=== PATIENT | male | born 1985 | race Caucasian/White ===

== ENCOUNTER 2019-09-19 14:17 | Emergency (ER) | payer SELFPAY ==
--- OUTSIDE RECORDS SUMMARY | 2019-09-19 14:19 | XMS REPORT ---
:1985 Author Organization [facility] Address [address] [place] [address] [place] [id number] Care Team Providers Name Role Phone JOHNROBEREMELIA GARCIA Unavailable Unavailable Problems This patient has no known problems. Allergies, Adverse Reactions, Alerts This patient has no known allergies or adverse reactions. Medications This patient has no known medications. Results Test Description Test Time Test Comments Text Results Atomic Results Result Comments HEMOGLOBIN A1C 2017-03-01 20:49:00 Test Item Value Reference Range Comments HEMOGLOBIN A1C (BEAKER) (test dccy=127) 5.3 % 4.3-6.1 CREATINE KINASE (CK), TOTAL AND [id number] 16:24:00 Test Item Value Reference Range Comments CREATINE KINASE TOTAL (BEAKER) (test jskw=696) 105 U/L 29-200 CREATINE KINASE-MB (BEAKER) (test sqoh=042) 0.7 ng/mL 0.0-6.6 CREATINE KINASE-MB INDEX (BEAKER) (test prtl=205) 0.7 % Effective 07/13/2014: CK-MB Reference Range ChangeNew: 0.0-6.6 Previous: 0.0- 4.9CK-MB Reference Range:<6.7 Normal6.7-10.0 Borderline>10.0 AbnormalTROPONIN [id number] 16:24:00 Test Item Value Reference Range Comments TROPONIN I (BEAKER) (test lsdy=612) < ng/mL 0.00-0.03 Effective 07/13/2014: Reference Range ChangeNew: 0.00-0.03 Previous 0.00- 0.15Troponin I (TnI) levels must be interpreted in the context of the presenting symptoms and the clinical findings. Elevated TnI levels indicate myocardial damage, but are not specific for ischemic heart disease. Elevated TnI levels are seen in patients with other cardiac conditions (including myocarditis and congestive heartfailure), and slight TnI elevations occur in patients with other conditions, including sepsis, renalfailure, acidosis, acute neurological disease, and persistent tachyarrhythmia.[id number] 11:46:00 Test Item Value Reference Range Comments RPR SCREEN (BEAKER) (test tnxx=985) Nonreactive Nonreactive CREATINE KINASE (CK), TOTAL AND [id number] 08:49:00 Test Item Value Reference Range Comments CREATINE KINASE TOTAL (BEAKER) (test msir=370) 104 U/L 29-200 CREATINE KINASE-MB (BEAKER) (test hzaf=257) 0.8 ng/mL 0.0-6.6 CREATINE KINASE-MB INDEX (BEAKER) (test dyjz=468) 0.8 % Effective 07/13/2014: CK-MB Reference Range ChangeNew: 0.0-6.6 Previous: 0.0- 4.9CK-MB Reference Range:<6.7 Normal6.7-10.0 Borderline>10.0 AbnormalTROPONIN [id number] 08:49:00 Test Item Value Reference Range Comments TROPONIN I (BEAKER) (test qmef=556) < ng/mL 0.00-0.03 Effective 07/13/2014: Reference Range ChangeNew: 0.00-0.03 Previous 0.00- 0.15Troponin I (TnI) levels must be interpreted in the context of the presenting symptoms and the clinical findings. Elevated TnI levels indicate myocardial damage, but are not specific for ischemic heart disease. Elevated TnI levels are seen in patients with other cardiac conditions (including myocarditis and congestive heartfailure), and slight TnI elevations occur in patients with other conditions, including sepsis, renalfailure, acidosis, acute neurological disease, and persistent tachyarrhythmia.TSH/FREE T4 IF [id number] 03:14:00 Test Item Value Reference Range Comments THYROID STIMULATING HORMONE (BEAKER) (test 1.44 uIU/mL 0.35-4.94 sofp=525) VITAMIN B12 AND [id number] 03:14:00 Test Item Value Reference Range Comments VITAMIN B12 (BEAKER) (test gjcp=616) 432 pg/mL 213-816 FOLATE (BEAKER) (test rxkd=412) 17.1 ng/mL >=7.0 Effective 07/13/2014: Folate Reference Range ChangeNew: >=7.0 Previous: & gt;=5.4CREATINE KINASE (CK), TOTAL AND [id number] 02:35:00 Test Item Value Reference Range Comments CREATINE KINASE TOTAL (BEAKER) (test uvxq=721) 172 U/L 29-200 CREATINE KINASE-MB (BEAKER) (test usim=008) 1.0 ng/mL 0.0-6.6 CREATINE KINASE-MB INDEX (BEAKER) (test ufvj=419) 0.6 % Effective 07/13/2014: CK-MB Reference Range ChangeNew: 0.0-6.6 Previous: 0.0- 4.9CK-MB Reference Range:<6.7 Normal6.7-10.0 Borderline>10.0 AbnormalTROPONIN [id number] 02:35:00 Test Item Value Reference Range Comments TROPONIN I (BEAKER) (test nqzl=953) < ng/mL 0.00-0.03 Effective 07/13/2014: Reference Range ChangeNew: 0.00-0.03 Previous 0.00- 0.15Troponin I (TnI) levels must be interpreted in the context of the presenting symptoms and the clinical findings. Elevated TnI levels indicate myocardial damage, but are not specific for ischemic heart disease. Elevated TnI levels are seen in patients with other cardiac conditions (including myocarditis and congestive heartfailure), and slight TnI elevations occur in patients with other conditions, including sepsis, renalfailure, acidosis, acute neurological disease, and persistent tachyarrhythmia.[id number] 02:29: 00 Test Item Value Reference Range Comments PHOSPHORUS (BEAKER) (test mbtq=316) 4.2 mg/dL 2.3-4.7 [id number] 02:29:00 Test Item Value Reference Range Comments MAGNESIUM (BEAKER) (test yxhb=660) 2.1 mg/dL 1.6-2.6 LIPID [id number] 02:29:00 Test Item Value Reference Range Comments TRIGLYCERIDES (BEAKER) (test zgzk=573) 299 mg/dL CHOLESTEROL (BEAKER) (test ierq=968) 171 mg/dL HDL CHOLESTEROL (BEAKER) (test rzyh=815) 39 mg/dL LDL CHOLESTEROL CALCULATED (BEAKER) (test 72 mg/dL voyw=174) Triglyceride Reference Range: Low Risk <150 Borderline 150- 199 High Risk 200-499 Very High Risk >=500Cholesterol Reference Range: Low Risk <200 Borderline 200-239 High Risk > 240HDL Cholesterol Reference Range: Low Risk >=60 High Risk <40LDL Cholesterol Reference Range: Optimal <100 Near Optimal 100-129 Borderline 130-159 High 160-189 Very High >=190CBC W/PLT COUNT & AUTO [id number] 02:20:00 Test Item Value Reference Range Comments WHITE BLOOD CELL COUNT (BEAKER) (test lnsk=127) 9.6 K/ L 4.0-10.0 RED BLOOD CELL COUNT (BEAKER) (test tacw=710) 4.50 M/ L 4.20-5.80 HEMOGLOBIN (BEAKER) (test gnug=662) 15.7 GM/DL 13.0-16.8 HEMATOCRIT (BEAKER) (test ockn=690) 44.1 % 40.0-50.0 MEAN CORPUSCULAR VOLUME (BEAKER) (test tjuz=630) 98.0 fL 82.0-98.0 MEAN CORPUSCULAR HEMOGLOBIN (BEAKER) (test 34.9 pg 27.0-33.0 gmjw=448) MEAN CORPUSCULAR HEMOGLOBIN CONC (BEAKER) (test 35.6 GM/DL 32.0-36.0 kozt=527) RED CELL DISTRIBUTION WIDTH (BEAKER) (test 11.1 % 10.3-14.2 dljf=516) PLATELET COUNT (BEAKER) (test lgii=812) 219 K/CU MM 150-430 MEAN PLATELET VOLUME (BEAKER) (test tftn=218) 7.4 fL 6.5-10.5 NUCLEATED RED BLOOD CELLS (BEAKER) (test 0 /100 WBC 0-0 arlm=322) NEUTROPHILS RELATIVE PERCENT (BEAKER) (test 48 % dfja=933) LYMPHOCYTES RELATIVE PERCENT (BEAKER) (test 43 % mioo=386) MONOCYTES RELATIVE PERCENT (BEAKER) (test 7 % hwuq=442) EOSINOPHILS RELATIVE PERCENT (BEAKER) (test 2 % sifh=385) BASOPHILS RELATIVE PERCENT (BEAKER) (test 1 % qtpp=150) NEUTROPHILS ABSOLUTE COUNT (BEAKER) (test 4.59 K/ L 1.80-8.00 nyfx=647) LYMPHOCYTES ABSOLUTE COUNT (BEAKER) (test 4.11 K/ L 1.48-4.50 oskn=667) MONOCYTES ABSOLUTE COUNT (BEAKER) (test 0.62 K/ L 0.00-1.30 ause=129) EOSINOPHILS ABSOLUTE COUNT (BEAKER) (test 0.16 K/ L 0.00-0.50 akiw=487) BASOPHILS ABSOLUTE COUNT (BEAKER) (test 0.07 K/ L 0.00-0.20 fnzi=823) 0.00
[2019-09-19 15:47] LABS: Absolute Lymphocytes (CBC) 2.2 K/uL (0.7-4.9); Basophils % 1.1 % (0-1.3); Hematocrit 44.8 % (39.6-49.0); Lymphocytes % 18.5 % (15.3-44.8); MPV 8.6 fL (7.6-11.3); RBC Red Blood Cell Count 4.85 M/uL (4.33-5.43)
[2019-09-19 15:49] LABS: Protime INR 0.99
[2019-09-19] MEDS ORDERED: ACETAMINOPHEN 325 MG TABLET ONE (15:50)
--- NOTE | 2019-09-19 15:53 | RAD REPORT ---
EXAM DESCRIPTION: RAD - Chest Pa And Lat (2 Views) - 09/19/2019 3:43 pm CLINICAL HISTORY: cough Chest pain. COMPARISON: Chest Single View dated 02/27/2017; CHEST PA AND LAT 2 VIEW dated 09/01/2014; CHEST PA AND L AT 2 VIEW dated 06/29/2011; CHEST SINGLE VIEW dated 09/10/2009 FINDINGS: The lungs are clear. The heart is normal in size. No displaced fractures. IMPRESSION: No acute or concerning finding suspected.
[2019-09-19 16:00] LABS: ALT/SGPT 37 U/L (12-78); AST/SGOT 24 U/L (15-37); Albumin 4.3 g/dL (3.4-5.0); Alkaline Phosphatase 122 U/L (45-117); BUN Blood Urea Nitrogen 10 mg/dL (7-18); Bicarbonate 29 mmol/L (21-32); Bilirubin Direct 0.1 mg/dL (0-0.2); Bilirubin Total 0.5 mg/dL (0.2-1.0); Glucose Level 105 mg/dL (74-106); Potassium 4.3 mmol/L (3.5-5.1); Protein, Total 8.3 g/dL (6.4-8.2); Sodium Level 138 mmol/L (136-145); Troponin (Emerg Dept Use Only) < 0.02 ng/mL (0.0-0.045)
--- NOTE | 2019-09-19 16:55 | ER ---
Nurse's Notes [facility] [place] Name: Addy Chan Age: 34 yrs Sex: Male : 1985 Arrival Date: 09/19/2019 Time: 14:24 Bed 19 Private MD: Diagnosis: Streptococcal pharyngitis;Chest pain, unspecified;Cough Presentation: 09/19 14:26 Presenting complaint: Productive cough with brownish sputum, SOB, chest tightness, hb nausea, malaise, and diarrhea x 3 days. Transition of care: patient was not received from another setting of care. Onset of symptoms was September 17, 2019. Risk Assessment: Do you want to hurt yourself or someone else? Patient reports no desire to harm self or others. Care prior to arrival: None. 14:26 Method Of Arrival: Ambulatory hb 14:26 Acuity: BALBIR 3 hb 14:30 Initial Sepsis Screen: Does the patient meet any 2 criteria? No. Patient's initial rb1 sepsis screen is negative. Does the patient have a suspected source of infection? No. Patient's initial sepsis screen is negative. Historical: - Allergies: 14:27 Iodine; hb - PMHx: 14:27 Diabetes - NIDDM; TIA x2; hb - PSHx: 14:27 right club foot corrected; hb - Immunization history:: Adult Immunizations up to date. - Coronavirus screen:: The patient has NOT traveled to [place], [place], or [place] in the past 14 days. The patient has NOT had contact with known/suspected case of Coronavirus? Proceed with normal triage procedures. - Social history:: Smoking status: Patient reports the use of cigarette tobacco products, smokes one-half pack cigarettes per day. - Ebola Screening: : No symptoms or risks identified at this time. Screenin:30 Abuse screen: Denies threats or abuse. Nutritional screening: No deficits noted. rb1 Tuberculosis screening: No symptoms or risk factors identified. Fall Risk None identified. Assessment: 14:30 General: Appears in no apparent distress. comfortable, Behavior is calm, cooperative, rb1 Reports fever for. Pain: Complains of pain in chest Pain does not radiate. Pain currently is 6 out of 10 on a pain scale. Quality of pain is described as pressure, Pain began 2-3 days ago. pain described at pressure. Neuro: Level of Consciousness is awake, alert, obeys commands, Oriented to person, place, time, situation. Cardiovascular: Capillary refill < 3 seconds is brisk in bilateral fingers. Respiratory: Reports cough that is productive, yellow sputum pain with cough Airway is patent Respiratory effort is even, unlabored, Respiratory pattern is regular, symmetrical. GI: Reports nausea. : No signs and/or symptoms were reported regarding the genitourinary system. Derm: Skin is pink, warm \T\ dry. 15:30 Reassessment: Patient appears in no apparent distress at this time. No changes from rb1 previously documented assessment. 16:30 Reassessment: Patient appears in no apparent distress at this time. Patient and/or rb1 family updated on plan of care and expected duration. Pain level reassessed. Patient is alert, oriented x 3, equal unlabored respirations, skin warm/dry/pink. 17:26 Reassessment: Patient appears in no apparent distress at this time. No changes from rb1 previously documented assessment. Family at the bedside. Vital Signs: 14:27 BP 161 / 102; Pulse 90; Resp 16; Temp 99; Pulse Ox 96% on R/A; Weight 72.57 kg; Height hb 5 ft. 4 in. (162.56 cm); Pain 5/10; 15:25 BP 130 / 81; Pulse 87; Resp 16; Pulse Ox 99% on R/A; rb1 16:25 BP 139 / 88; Pulse 76; Resp 18; Pulse Ox 98% on R/A; rb1 17:23 BP 125 / 75; Pulse 75; Resp 17; Pulse Ox 97% on R/A; Pain 4/10; rb1 14:27 Body Mass Index 27.46 (72.57 kg, 162.56 cm) hb ED Course: 14:24 Patient arrived in ED. es 14:27 Triage completed. hb 14:27 Arm band placed on. hb 14:29 Nicanor Matias NP is PHCP. pm1 14:29 Vikram Fiore MD is Attending Physician. pm1 14:30 Patient has correct armband on for positive identification. Bed in low position. Call rb1 light in reach. Side rails up X 1. campus monitor on. Pulse ox on. NIBP on. 14:30 Patient maintains SpO2 saturation greater than 95% on room air. rb1 14:51 Jossy Alcaraz, ANNELISE is Primary Nurse. rb1 15:28 Inserted saline lock: 20 gauge in right antecubital area, using aseptic technique. rb1 ,using aseptic technique. IV inserted by ANNELISE Abreu Blood collected. 15:42 Chest Pa And Lat (2 Views) In Process Unspecified. EDMS 17:26 No provider procedures requiring assistance completed. IV discontinued, intact, rb1 bleeding controlled, No redness/swelling at site. Pressure dressing applied. Administered Medications: 15:49 Drug: Tylenol 650 mg Route: PO; rb1 16:33 Follow up: Response: No adverse reaction; Pain is decreased rb1 Outcome: 16:54 Discharge ordered by MD. pm1 17:26 Discharged to home ambulatory, with significant other. rb1 17:26 Condition: stable 17:26 Discharge instructions given to patient, Instructed on discharge instructions, follow up and referral plans. medication usage, Demonstrated understanding of instructions, follow-up care, medications, Prescriptions given X 1. 17:26 Patient left the ED. rb1 Signatures: Dispatcher [employer] EDMS Opal Dominguez Rebecca, RN RN rb1 Nicanor Matias, FOREIGN EXCHANGE TRADER FOREIGN EXCHANGE TRADER pm1 Alta Kelly RN RN Corrections: (The following items were deleted from the chart) 17:29 17:28 Initial Sepsis Screen: Does the patient meet any 2 criteria? rb1 rb1 17:31 17:30 Patient left the ED. rb1 rb1
--- NOTE | 2019-09-19 16:56 | EDPHYS ---
Physician Documentation [facility] Name: Addy Chan Age: 34 yrs Sex: Male : 1985 Arrival Date: 09/19/2019 Time: 14:24 Bed 19 Private MD: ED Physician Vikram Fiore HPI: 09/19 15:16 This 34 yrs old Male presents to ER via Ambulatory with complaints of Chest pm1 Tightness. 15:16 The patient or guardian reports chest pain that is located primarily in the mid-sternal pm1 area. The pain does not radiate. Associated signs and symptoms: Pertinent positives: dry cough that became productive, Pertinent negatives: dizziness. The chest pain is described as tightness and increased with coughing. Modifying factors: The symptoms are alleviated by nothing. the symptoms are aggravated by cough. Severity of pain: in the emergency department the pain is actually worse. The patient has not recently seen a physician. Historical: - Allergies: 14:27 Iodine; hb - PMHx: 14:27 Diabetes - NIDDM; TIA x2; hb - PSHx: 14:27 right club foot corrected; hb - Immunization history:: Adult Immunizations up to date. - Coronavirus screen:: The patient has NOT traveled to [place], [place], or [place] in the past 14 days. The patient has NOT had contact with known/suspected case of Coronavirus? Proceed with normal triage procedures. - Social history:: Smoking status: Patient reports the use of cigarette tobacco products, smokes one-half pack cigarettes per day. - Ebola Screening: : No symptoms or risks identified at this time. ROS: 15:16 Constitutional: Negative for fever, chills, and weight loss, Eyes: Negative for injury, pm1 pain, redness, and discharge, ENT: Negative for injury, pain, and discharge, Neck: Negative for injury, pain, and swelling. 15:16 Abdomen/GI: Negative for abdominal pain, nausea, vomiting, diarrhea, and constipation, Back: Negative for injury and pain, MS/Extremity: Negative for injury and deformity, Skin: Negative for injury, rash, and discoloration, Neuro: Negative for headache, weakness, numbness, tingling, and seizure. 15:16 Cardiovascular: Positive for chest pain, Negative for edema, orthopnea, palpitations. 15:16 Respiratory: Positive for cough, brown sputum, Negative for shortness of breath, wheezing. Exam: 16:27 Constitutional: This is a well developed, well nourished patient who is awake, alert, pm1 and in no acute distress. Head/Face: Normocephalic, atraumatic. Neck: Trachea midline, no thyromegaly or masses palpated, and no cervical lymphadenopathy. Supple, full range of motion without nuchal rigidity, or vertebral point tenderness. No Meningismus. 16:27 Cardiovascular: Regular rate and rhythm with a normal S1 and S2. No gallops, murmurs, or rubs. Normal PMI, no JVD. No pulse deficits. Respiratory: Lungs have equal breath sounds bilaterally, clear to auscultation and percussion. No rales, rhonchi or wheezes noted. No increased work of breathing, no retractions or nasal flaring. Abdomen/GI: Soft, non-tender, with normal bowel sounds. No distension or tympany. No guarding or rebound. No evidence of tenderness throughout. Back: No spinal tenderness. No costovertebral tenderness. Full range of motion. Skin: Warm, dry with normal turgor. Normal color with no rashes, no lesions, and no evidence of cellulitis. MS/ Extremity: Pulses equal, no cyanosis. Neurovascular intact. Full, normal range of motion. 16:27 Chest/axilla: Inspection: normal, Palpation: tenderness, of the mid-sternal area, that totally reproduces the patient's complaints. 16:27 Neuro: Orientation: is normal, Motor: is normal, moves all fours. Vital Signs: 14:27 BP 161 / 102; Pulse 90; Resp 16; Temp 99; Pulse Ox 96% on R/A; Weight 72.57 kg; Height hb 5 ft. 4 in. (162.56 cm); Pain 5/10; 15:25 BP 130 / 81; Pulse 87; Resp 16; Pulse Ox 99% on R/A; rb1 16:25 BP 139 / 88; Pulse 76; Resp 18; Pulse Ox 98% on R/A; rb1 17:23 BP 125 / 75; Pulse 75; Resp 17; Pulse Ox 97% on R/A; Pain 4/10; rb1 14:27 Body Mass Index 27.46 (72.57 kg, 162.56 cm) hb MDM: 14:49 Patient medically screened. pm1 16:41 Data reviewed: vital signs. Data interpreted: Pulse oximetry: on room air is 96 %. pm1 Interpretation: normal. 16:42 Counseling: I had a detailed discussion with the patient and/or guardian regarding: the pm1 historical points, exam findings, and any diagnostic results supporting the discharge/admit diagnosis, lab results, radiology results, the need for outpatient follow up, to return to the emergency department if symptoms worsen or persist or if there are any questions or concerns that arise at home. 16:42 ED course: Patient offered medications for symptoms. Patient refused, said he has some pm1 cough syrup at home already. 09/19 15:13 Order name: Influenza Screen (A ; Complete Time: 16:00 EDMS 09/19 15:13 Order name: Group A Streptococcus Rapid Sc; Complete Time: 16: ED09/19 15:35 Order name: Basic Metabolic Panel; Complete Time: 16:09/19 15:35 Order name: Liver (Hepatic) Function; Complete Time: 16:09/19 15:35 Order name: Troponin (Emerg Dept Use Only); Complete Time: 16: ED09/19 14:44 Order name: EKG; Complete Time: 16:01 pm09/19 14:44 Order name: Cardiac monitoring; Complete Time: 15:28 pm09/19 14:44 Order name: EKG - Nurse/Tech; Complete Time: 16:15 pm09/19 14:44 Order name: IV Saline Lock; Complete Time: 15:28 pm09/19 14:44 Order name: Labs collected and sent; Complete Time: 15:28 pm09/19 14:44 Order name: O2 Per Protocol; Complete Time: 15:28 pm09/19 14:44 Order name: O2 Sat Monitoring; Complete Time: 15:28 pm09/19 15:12 Order name: Chest Pa And Lat (2 Views); Complete Time: 16:00 EDMS 09/19 15:35 Order name: Magnesium; Complete Time: 16:09/19 15:35 Order name: CBC with Automated Diff; Complete Time: 16:00 EDMS 09/19 15:35 Order name: Protime (+INR); Complete Time: 16:09/19 15:36 Order name: NT PRO-BNP; Complete Time: 16:42 EDSC EC:27 Rate is 76 beats/min. Rhythm is regular, Sinus arrythmia with No ectopy. QRS [place] is kdr Normal. [place] interval is normal. QRS interval is normal. Clinical impression: NSR w/ Non-specific ST/T Changes and Sinus arrythmia. Administered Medications: 15:49 Drug: Tylenol 650 mg Route: PO; rb1 16:33 Follow up: Response: No adverse reaction; Pain is decreased rb1 Disposition: 09/19/19 16:54 Discharged to Home. Impression: Streptococcal pharyngitis, Chest pain, unspecified, Cough. - Condition is Stable. - Discharge Instructions: Nonspecific Chest Pain, Strep Throat, Cough, Adult. - Prescriptions for Amoxicillin 500 mg Oral Capsule - take 1 capsule by ORAL route every 8 hours for 10 days; 30 tablet. - Medication Reconciliation Form, Thank You Letter, Antibiotic Education, Prescription Opioid Use form. - Follow up: Emergency Department; When: As needed; Reason: Worsening of condition. Follow up: Private Physician; When: 2 - 3 days; Reason: Recheck today's complaints, Continuance of care, Re-evaluation by your physician. - Problem is new. - Symptoms have improved. Addendum: 09/20/2019 21:15 Co-signature as Attending Physician, Vikram Fiore MD I agree with the assessment and k dr plan of care. Signatures: Dispatcher [employer] [facility] Vikram Fiore MD MD [facility] Jossy Alcaraz, RN RN rb1 Nicanor Matias NP HEATER HELPER pm1 Alta Kelly RN RN Corrections: (The following items were deleted from the chart) 09/19 16:16 16:01 Chest Pa And Lat (2 Views)+[email or web address].[email or web address] ordered. [facility] 17:30 16:54 09/19/2019 16:54 Discharged to Home. Impression: Streptococcal pharyngitis; Chest rb1 pain, unspecified; Cough. Condition is Stable. Forms are Medication Reconciliation Form, Thank You Letter, Antibiotic Education, Prescription Opioid Use. Follow up: Emergency Department; When: As needed; Reason: Worsening of condition. Follow up: Private Physician; When: 2 - 3 days; Reason: Recheck today's complaints, Continuance of care, Re-evaluation by your physician. Problem is new. Symptoms have improved. pm1
[2019-09-19 17:37] VITALS: TEMP 99
[2019-09-19 17:41] VITALS: BP 125/75; O2SAT 97
--- NOTE | 2019-09-19 23:15 | EKG ---
Test Date: 2019-09-19 Test Time: 15:52:25 Graphic Specialist: JAZMÍN MEASUREMENT RESULTS: Intervals: Rate: 76 UT: 132 QRSD: 84 QT: 388 QTc: 436 [place]: P: 47 UT: 132 QRS: 33 T: 48 INTERPRETIVE STATEMENTS: Normal sinus rhythm with sinus arrhythmia Normal ECG Compared to ECG 02/27/2017 22:35:14 No significant changes Electronically Signed On 09-19-19 23:14:42 GLOBAL PROGRAM MANAGER by Pedro Wagoner
== END 2019-09-19 17:30 | disposition home or self-care (01) ==
LOC: ER 14:17
DX: J02.0 Streptococcal pharyngitis (principal); R05 Cough; R07.9 Chest pain, unspecified; Z91.09 Other allergy status, other than to drugs and biological substances
CPT/HCPCS: 36415; 71046; 80048; 80076; 83735; 83880; 84484; 85025; 85610; 87081; 87804; 93005; 99285

== ENCOUNTER 2022-08-22 12:21 | Emergency (ER) | payer OTHER, SELFPAY ==
--- OUTSIDE RECORDS SUMMARY | 2022-08-22 13:00 | XMS REPORT | Continuity of Care Document ---
:1985 Author Organization [facility] t Address [address] [place] [address] Care Team Providers Name Role Phone EMELIA LOPEZ Attending Clinician Unavailable EMELIA LOPEZ Admitting Clinician Unavailable Problems Condition Condition Condition Status Onset Resolution Last Treating Co mments Source Name Details Category Date Date Treatment Clinician Date Received Received Disease [facility] activator activator (t-PA) (t-PA) less than less than 24 hours 24 hours prior to prior to arrival arrival Acute Acute Disease Active [facility] ischemic [facility] stroke stroke 00:00: Medical 00 [place] Alcohol Alcohol Disease Active [facility] abuse abuse [facility] 00 [place] Essential Essential Disease Active [facility] hypertensi hypertensi 02-28 Isabel kes on on 00:00: Medical 00 [place] Allergies, Adverse Reactions, Alerts Allergy Allergy Status Severity Reaction(s) Onset Inactive Treating Comm ents Source Name Type Date Date Clinician Iodine Propensi Active [facility] to 02-28 [facility] Iodide adverse 00:00: Medical Containi reaction 00 [place] ng s Products NO KNOWN Drug Active [facility] ALLERGIE Toño it[facility] of [facility] Social History Social Habit Start Date Stop Date Quantity Comments Source History of tobacco Cigarette [facility] use [facility] Cigarettes smoked 2017-02-28 2017-02-[address] [facility] [address] [facility] current (pack per 00:00:00 [facility]:00 [facility] day) - Reported Cigarette 2017-02-28 2017-02-28 CHEYANNE Shine pack-years 00:00:00 [facility]:00:00 [facility] Alcohol intake 2017-02-28 2017-02-28 Current drinker CHEYANNE Smith 00:00:00 00:00:00 of alcohol [facility] (finding) Sex [birth year] At [birth year] CHEYANNE Ayala 00:00:00 [facility]:00 [facility] Smoking Status Start Date Stop Date Source Current every day smoker 2017-02-28 00:00:00 [facility] Medications This patient has no known medications. Procedures This patient has no known procedures. Encounters Start End Encounter Admission Attending Care Care Encounter Source Date/Time Date/Time Type Type Clinicians Facility Department ID 2020-05-11 2020-05-11 Emergency X [facility] ERT [id number] [facility] 02:48:00 02:48:00 [facility] Results Test Description Test Time Test Comments Results Result Comments Source HEMOGLOBIN A1C 2017-03-01 20:49:00 Test Item Value Reference Range Interpretation Comme nts HEMOGLOBIN A1C (BEAKER) (test code = 368) 5.3 % 4.3-6.1 CREATINE KINASE (CK), TOTAL AND [id number] 16:24:00 Test Item Value Reference Range Interpretation Comments CREATINE KINASE TOTAL (BEAKER) 105 U/L 29-200 (test code = 380) CREATINE KINASE-MB (BEAKER) (test 0.7 ng/mL 0.0-6.6 code = 750) CREATINE KINASE-MB INDEX (BEAKER) 0.7 % (test code = 395) Effective 07/13/2014: CK-MB Reference Range ChangeNew: 0.0-6.6 Previous: 0.0-4.9CK-MB Reference Range:<6.7 Normal6.7-10.0 Borderline>10.0 Abnormal TROPONIN [id number] 16:24:00 Test Item Value Reference Range Interpretation Comments TROPONIN I (BEAKER) (test code = 397) < ng/mL 0.00-0.03 Effective 07/13/2014: Reference Range ChangeNew: 0.00-0.03 Previous 0.00- 0.15Troponin I (TnI) levelsmust be interpreted in the context of the presenting symptoms and the clinical findings. Elevated TnI levels indicate myocardial damage, but are not specific for ischemic heart disease. Elevated TnI levels are seen in patients with other cardiac conditions (including myocarditis and congestive heart failure), and slight TnI elevations occur in patients with other conditions, including sepsis, renal failure, acidosis, acute neurological disease, and persistent tachyarrhythmia.[id number] 11:46:00 Test Item Value Reference Range Interpretation Comments RPR SCREEN (Loud3r) (test code = Nonreactive Nonreactive 420) CREATINE KINASE (CK), TOTAL AND [id number] 08:49:00 Test Item Value Reference Range Interpretation Comments CREATINE KINASE TOTAL (GlucoSentientAKER) 104 U/L 29-200 (test code = 380) CREATINE KINASE-MB (GlucoSentientAKER) (test 0.8 ng/mL 0.0-6.6 code = 750) CREATINE KINASE-MB INDEX (GlucoSentientAKER) 0.8 % (test code = 395) Effective 07/13/2014: CK-MB Reference Range ChangeNew: 0.0-6.6 Previous: 0.0-4.9CK-MB Reference Range:<6.7 Normal6.7-10.0 Borderline>10.0 Abnormal TROPONIN [id number] 08:49:00 Test Item Value Reference Range Interpretation Comments TROPONIN I (GlucoSentientAKER) (test code = 397) < ng/mL 0.00-0.03 Effective 07/13/2014: Reference Range ChangeNew: 0.00-0.03 Previous 0.00- 0.15Troponin I (TnI) levelsmust be interpreted in the context of the presenting symptoms and the clinical findings. Elevated TnI levels indicate myocardial damage, but are not specific for ischemic heart disease. Elevated TnI levels are seen in patients with other cardiac conditions (including myocarditis and congestive heart failure), and slight TnI elevations occur in patients with other conditions, including sepsis, renal failure, acidosis, acute neurological disease, and persistent tachyarrhythmia.TSH/FREE T4 IF [id number] 03:14:00 Test Item Value Reference Range Interpretation Comments THYROID STIMULATING HORMONE 1.44 uIU/mL 0.35-4.94 (BEAKER) (test code = 772) VITAMIN B12 AND [id number] 03:14:00 Test Item Value Reference Range Interpretation Comments VITAMIN B12 (BEAKER) (test code = 432 pg/mL 213-816 774) FOLATE (BEAKER) (test code = 362) 17.1 ng/mL >=7.0 Effective 07/13/2014: Folate Reference Range ChangeNew: >=7.0 Previous: >=5.4CREATINE KINASE (CK), TOTAL AND [id number] 02:35:00 Test Item Value Reference Range Interpretation Comments CREATINE KINASE TOTAL (BEAKER) 172 U/L 29-200 (test code = 380) CREATINE KINASE-MB (BEAKER) (test 1.0 ng/mL 0.0-6.6 code = 750) CREATINE KINASE-MB INDEX (BEAKER) 0.6 % (test code = 395) Effective 07/13/2014: CK-MB Reference Range ChangeNew: 0.0-6.6 Previous: 0.0-4.9CK-MB Reference Range:<6.7 Normal6.7-10.0 Borderline>10.0 Abnormal TROPONIN [id number] 02:35:00 Test Item Value Reference Range Interpretation Comments TROPONIN I (BEAKER) (test code = 397) < ng/mL 0.00-0.03 Effective 07/13/2014: Reference Range ChangeNew: 0.00-0.03 Previous 0.00- 0.15Troponin I (TnI) levelsmust be interpreted in the context of the presenting symptoms and the clinical findings. Elevated TnI levels indicate myocardial damage, but are not specific for ischemic heart disease. Elevated TnI levels are seen in patients with other cardiac conditions (including myocarditis and congestive heart failure), and slight TnI elevations occur in patients with other conditions, including sepsis, renal failure, acidosis, acute neurological disease, and persistent tachyarrhythmia.[id number] 02:29:00 Test Item Value Reference Range Interpretation Comments PHOSPHORUS (BEAKER) (test code = 4.2 mg/dL 2.3-4.7 604) [id number] 02:29:00 Test Item Value Reference Range Interpretation Comments MAGNESIUM (BEAKER) (test code = 2.1 mg/dL 1.6-2.6 627) LIPID [id number] 02:29:00 Test Item Value Reference Range Interpretation Comments TRIGLYCERIDES (BEAKER) (test code = 299 mg/dL 540) CHOLESTEROL (BEAKER) (test code = 171 mg/dL 631) HDL CHOLESTEROL (BEAKER) (test code 39 mg/dL = 976) LDL CHOLESTEROL CALCULATED (BEAKER) 72 mg/dL (test code = 633) Triglyceride Reference Range: Low Risk <150 Borderline 150-199 High Risk 200- 499 Very High Risk >=500Cholesterol Reference Range: Low Risk <200 Borderline 200-239 High Risk >240HDL Cholesterol Reference Range: Low Risk >=60 High Risk <40LDL Cholesterol Reference Range: Optimal <100 Near Optimal 100-129 Borderline 130-159 High 160-189 Very High >=190CBC W/PLT COUNT & AUTO [id number] 02:20:00 Test Item Value Reference Range Interpretation Comments WHITE BLOOD CELL COUNT (BEAKER) 9.6 K/ L 4.0-10.0 (test code = 775) RED BLOOD CELL COUNT (BEAKER) 4.50 M/ L 4.20-5.80 (test code = 761) HEMOGLOBIN (BEAKER) (test code = 15.7 GM/DL 13.0-16.8 410) HEMATOCRIT (BEAKER) (test code = 44.1 % 40.0-50.0 411) MEAN CORPUSCULAR VOLUME (BEAKER) 98.0 fL 82.0-98.0 (test code = 753) MEAN CORPUSCULAR HEMOGLOBIN 34.9 pg 27.0-33.0 H (BEAKER) (test code = 751) MEAN CORPUSCULAR HEMOGLOBIN CONC 35.6 GM/DL 32.0-36.0 (BEAKER) (test code = 752) RED CELL DISTRIBUTION WIDTH 11.1 % 10.3-14.2 (BEAKER) (test code = 412) PLATELET COUNT (BEAKER) (test 219 K/CU MM 150-430 code = 756) MEAN PLATELET VOLUME (BEAKER) 7.4 fL 6.5-10.5 (test code = 754) NUCLEATED RED BLOOD CELLS 0 /100 WBC 0-0 (BEAKER) (test code = 413) NEUTROPHILS RELATIVE PERCENT 48 % (BEAKER) (test code = 429) LYMPHOCYTES RELATIVE PERCENT 43 % (BEAKER) (test code = 430) MONOCYTES RELATIVE PERCENT 7 % (BEAKER) (test code = 431) EOSINOPHILS RELATIVE PERCENT 2 % (BEAKER) (test code = 432) BASOPHILS RELATIVE PERCENT 1 % (BEAKER) (test code = 437) NEUTROPHILS ABSOLUTE COUNT 4.59 K/ L 1.80-8.00 (BEAKER) (test code = 670) LYMPHOCYTES ABSOLUTE COUNT 4.11 K/ L 1.48-4.50 (BEAKER) (test code = 414) MONOCYTES ABSOLUTE COUNT (BEAKER) 0.62 K/ L 0.00-1.30 (test code = 415) EOSINOPHILS ABSOLUTE COUNT 0.16 K/ L 0.00-0.50 (BEAKER) (test code = 416) BASOPHILS ABSOLUTE COUNT (BEAKER) 0.07 K/ L 0.00-0.20 (test code = 417) 0.00
[2022-08-22 13:41] LABS: SARS-COV-2 RT PCR NEGATIVE (NEGATIVE)
--- NOTE | 2022-08-22 13:44 | EDPHYS ---
Physician Documentation [facility] Name: Addy Chan Age: 37 yrs Sex: Male : 1985 Arrival Date: 08/22/2022 Time: 12:38 Bed IW1 Private MD: ED Physician René Stafford HPI: 08/22 13:06 This 37 yrs old Male presents to ER via Ambulatory with complaints of Fever, bodyaches. snw 13:06 The patient reports fever, that was measured at 100 degrees Fahrenheit. Onset: The snw symptoms/episode began/occurred suddenly, yesterday. Modifying factors: there are no obvious modifying factors. Severity of symptoms: At their worst the symptoms were moderate. The patient has not experienced similar symptoms in the past. The patient has not recently seen a physician. Historical: - Allergies: 12:53 No Known Allergies; ss - Home Meds: 12:53 None [Active]; ss - PMHx: 12:53 TIA x2; ss - PSHx: 12:53 R club foot correction; ss - Immunization history:: Client reports having NOT received the Covid vaccine. - Social history:: Smoking status: Reported history of juuling and/or vaping. ROS: 13:07 Eyes: Negative for injury, pain, redness, and discharge, ENT: Negative for injury, snw pain, and discharge, Neck: Negative for injury, pain, and swelling, Cardiovascular: Negative for chest pain, palpitations, and edema, Respiratory: Negative for shortness of breath, cough, wheezing, and pleuritic chest pain. 13:07 Back: Negative for injury and pain, : Negative for injury, bleeding, discharge, and swelling, MS/Extremity: Negative for injury and deformity, Skin: Negative for injury, rash, and discoloration, Neuro: Negative for headache, weakness, numbness, tingling, and seizure, Psych: Negative for depression, anxiety, suicide ideation, homicidal ideation, and hallucinations. 13:07 Constitutional: Positive for body aches, fatigue, fever, malaise, poor PO intake. 13:07 Abdomen/GI: Positive for nausea. Exam: 13:05 Constitutional: This is a well developed, well nourished patient who is awake, alert, snw and in no acute distress. Head/Face: Normocephalic, atraumatic. Eyes: Pupils equal round and reactive to light, extra-ocular motions intact. Lids and lashes normal. Conjunctiva and sclera are non-icteric and not injected. Cornea within normal limits. Periorbital areas with no swelling, redness, or edema. Neck: Trachea midline, no thyromegaly or masses palpated, and no cervical lymphadenopathy. Supple, full range of motion without nuchal rigidity, or vertebral point tenderness. No Meningismus. Chest/axilla: Normal chest wall appearance and motion. Nontender with no deformity. No lesions are appreciated. Cardiovascular: Regular rate and rhythm with a normal S1 and S2. No gallops, murmurs, or rubs. Normal PMI, no JVD. No pulse deficits. Respiratory: Lungs have equal breath sounds bilaterally, clear to auscultation and percussion. No rales, rhonchi or wheezes noted. No increased work of breathing, no retractions or nasal flaring. Abdomen/GI: Soft, non-tender, with normal bowel sounds. No distension or tympany. No guarding or rebound. No evidence of tenderness throughout. Back: No spinal tenderness. No costovertebral tenderness. Full range of motion. Skin: Warm, dry with normal turgor. Normal color with no rashes, no lesions, and no evidence of cellulitis. MS/ Extremity: Pulses equal, no cyanosis. Neurovascular intact. Full, normal range of motion. Neuro: Awake and alert, GCS 15, oriented to person, place, time, and situation. Cranial nerves II-XII grossly intact. Motor strength 5/5 in all extremities. Sensory grossly intact. Cerebellar exam normal. Normal gait. Psych: Awake, alert, with orientation to person, place and time. Behavior, mood, and affect are within normal limits. 13:05 ENT: External ear(s): are unremarkable, TM's: are normal, Nose: is normal, Mouth: is normal, Posterior pharynx: erythema, that is moderate, Voice: is normal. Vital Signs: 12:51 BP 120 / 82; Pulse 100; Resp 16; Temp 99.7(O); Pulse Ox 97% on R/A; Weight 74.84 kg; ss Height 5 ft. 4 in. (162.56 cm); Pain 9/10; 12:51 Body Mass Index 28.32 (74.84 kg, 162.56 cm) MDM: 13:08 Data reviewed: vital signs, nurses notes. Data interpreted: Pulse oximetry: on room air snw is 97 %. Interpretation: normal. Counseling: I had a detailed discussion with the patient and/or guardian regarding: the historical points, exam findings, and any diagnostic results supporting the discharge/admit diagnosis, the presence of at least one elevated blood pressure reading (>120/80) during this emergency department visit. 13:20 Patient medically screened. snw 08/22 12:54 Order name: COVID-19/FLU A+B; Complete Time: 13:42 ss Administered Medications: 14:47 Drug: Zithromax (azithromycin) 500 mg Route: PO; ss 14:47 Follow up: Response: Medication administered at discharge. Disposition: 18:05 Co-signature as Attending Physician, René Stafford MD I agree with the assessment and rt plan of care. Disposition Summary: 08/22/22 13:43 Discharge Ordered Location: Home snw Condition: Stable snw Diagnosis - Acute pharyngitis, unspecified snw Followup: snw - With: Emergency Department - When: As needed - Reason: Worsening of condition Followup: snw - With: Private Physician - When: 2 - 3 days - Reason: Recheck today's complaints, Continuance of care, Re-evaluation by your physician Discharge Instructions: - Discharge Summary Sheet snw - Pharyngitis snw - Viral Respiratory Infection snw - Rehydration, Adult snw Forms: - Work release form snw - Medication Reconciliation Form snw - Thank You Letter snw - Antibiotic Education snw - Prescription Opioid Use snw Prescriptions: - Zithromax Z-Petr 250 mg Oral Tablet - take 1 tablet by ORAL route as directed for 5 days Day 1 - take two (2) tablets snw one time. Day 2, 3, 4 , 5 take one (1) tablet once daily.; 6 tablet; Refills: 0, Product Selection Permitted Signatures: Dispatcher [employer] Martha Mckenna FNP-C FNP-Isabella Zamora RN RN René Garcia MD MD rt Corrections: (The following items were deleted from the chart) 12:54 12:53 Allergies: Iodine; ss 12:54 12:53 PMHx: Diabetes - NIDDM; ss ss 12:54 12:53 PMHx: PAC's; ss ss
--- NOTE | 2022-08-22 13:44 | ER ---
Nurse's Notes [facility] Name: Addy Chan Age: 37 yrs Sex: Male : 1985 Arrival Date: 08/22/2022 Time: 12:38 Bed IW1 Private MD: Diagnosis: Acute pharyngitis, unspecified Presentation: 08/22 12:51 Chief complaint: Patient states: fever, cough and body aches that began yesterday. Pt ss reports taking BC powder 2.5 hours ago. Coronavirus screen: Client denies travel out of the [place] in the last 14 days. Ebola Screen: Patient denies exposure to infectious person. Patient denies travel to an Ebola-affected area in the 21 days before illness onset. Initial Sepsis Screen: Does the patient meet any 2 criteria? No. Patient's initial sepsis screen is negative. Does the patient have a suspected source of infection? No. Patient's initial sepsis screen is negative. Risk Assessment: Do you want to hurt yourself or someone else? Patient reports no desire to harm self or others. Onset of symptoms was August 21, 2022. 12:51 Method Of Arrival: Ambulatory ss 12:51 Acuity: BALBIR 4 ss Historical: - Allergies: 12:53 No Known Allergies; ss - Home Meds: 12:53 None [Active]; ss - PMHx: 12:53 TIA x2; ss - PSHx: 12:53 R club foot correction; ss - Immunization history:: Client reports having NOT received the Covid vaccine. - Social history:: Smoking status: Reported history of juuling and/or vaping. Assessment: 14:47 Reassessment: Patient appears in no apparent distress at this time. Patient and/or ss family updated on plan of care and expected duration. Pain level reassessed. Patient is alert, oriented x 3, equal unlabored respirations, skin warm/dry/pink. Vital Signs: 12:51 BP 120 / 82; Pulse 100; Resp 16; Temp 99.7(O); Pulse Ox 97% on R/A; Weight 74.84 kg; ss Height 5 ft. 4 in. (162.56 cm); Pain 9/10; 12:51 Body Mass Index 28.32 (74.84 kg, 162.56 cm) ss ED Course: 12:38 Patient arrived in ED. am2 12:53 Triage completed. ss 12:53 Arm band placed on right wrist. ss 13:05 Martha Valles FNP-C is PHCP. snw 13:05 René Stafford MD is Attending Physician. snw 13:08 Martha Valles FNP-C is PHCP. snw 14:47 No provider procedures requiring assistance completed. Patient did not have IV access ss during this emergency room visit. Administered Medications: 14:47 Drug: Zithromax (azithromycin) 500 mg Route: PO; ss 14:47 Follow up: Response: Medication administered at discharge. ss Medication: 14:47 VIS not applicable for this client. ss Outcome: 13:43 Discharge ordered by . snw 14:47 Discharged to home ambulatory. ss 14:47 Condition: good 14:47 Discharge instructions given to patient, Instructed on discharge instructions, follow up and referral plans. medication usage, Demonstrated understanding of instructions, follow-up care, medications, Prescriptions given X 1. 14:48 Patient left the ED. ss Signatures: Martha Valles FNP-C FNP-Oraw Isabella Spencer, RN RN Cristiane Florian am2 Corrections: (The following items were deleted from the chart) 12:54 12:53 Allergies: Iodine; [facility] 12:54 12:53 PMHx: Diabetes - NIDDM; [facility] 12:54 12:53 PMHx: PAC's; [facility]
[2022-08-22] MEDS ORDERED: AZITHROMYCIN 250 MG TAB ONE (14:48)
[2022-08-22 14:52] VITALS: BP 120/82; TEMP 99.7; O2SAT 97
== END 2022-08-22 14:48 | disposition home or self-care (01) ==
LOC: ER 12:21
DX: J02.9 Acute pharyngitis, unspecified (principal); R50.9 Fever, unspecified; R11.0 Nausea; Z20.822 Contact with and (suspected) exposure to COVID-19
CPT/HCPCS: 0240U; Q0144